=== PATIENT | female | born 2000 | race Caucasian/White ===

== ENCOUNTER → 2020-04-05 08:08 | Outpatient (CLI) | payer OTHER, SELFPAY ==
[2020-04-05 09:21] LABS: Alanine Aminotransferase 13 IU/L (<35); Albumin 4.9 g/dL (3.5-5.0); Alkaline Phosphatase 48 U/L (38-126); Aspartate Aminotransferase 28 IU/L (14-36); BUN Creatinine Ratio 22.2 (6-22); Bilirubin Total 0.8 mg/dL (0.2-1.3); Blood Urea Nitrogen 14 mg/dL (7-17); Calcium 10.2 mg/dL (8.4-10.2); Carbon Dioxide 27 mmol/L (22-32); Chloride 104 mmol/L (98-107); Cholesterol 160 mg/dL (140-199); Estimated Glomerular Filt Rate > 60.0 mL/min (>60); Globulin 2.5 g/dL (1.7-4.1); Glucose 86 mg/dL (70-100); HDL Cholesterol 70 mg/dL (40-60); HEMOLYSIS < 15 (0-50); LDL Cholesterol Calculated 82 mg/dL (<100); Potassium 4.1 mmol/L (3.4-5.1); Sodium 138 mmol/L (137-145); Total Protein 7.4 g/dL (6.3-8.2); Triglycerides 41 mg/dL (35-150)
[2020-04-05 09:24] LABS: Hematocrit 38.3 % (36-46); Hemoglobin 13.4 g/dL (12.0-16.0); Mean Corpuscular HGB Conc 35.1 % (30-36); Mean Corpuscular Hemoglobin 30.7 PG (26-34); Mean Corpuscular Volume 87.5 fL (80-100); Platelet Count 228 X10^3/uL (150-400); Red Blood Cell Count 4.37 X10^6/uL (4.0-5.2); Red Cell Distribution Width 12.2 % (11.6-14.8); White Blood Cell Count 7.5 X10^3/uL (4.5-11.0)
== END ==
PROVIDERS: PCP Nurse Practitioner Family; Referring Provider Nurse Practitioner Family; Visit Provider Nurse Practitioner Family
DX: Z00.00 Encounter for general adult medical examination without abnormal findings (principal); Z01.83 Encounter for blood typing; Z13.6 Encounter for screening for cardiovascular disorders
CPT/HCPCS: 36415; 80053; 80061; 85027; 86900; 86901

== ENCOUNTER → 2020-04-21 14:24 | Outpatient (CLI) | payer OTHER, SELFPAY ==
--- NOTE | 2020-04-21 14:26 | DI.RAD.S_ITS ---
PROCEDURE: XR TIBIA FIBULA RT 2V INDICATIONS: left alvares pain TECHNIQUE: 2 views of the tibia and fibula were acquired. COMPARISON: None. FINDINGS: Bones: No fractures or dislocations. No suspicious bony lesions. Soft tissues: No suspicious soft tissue calcifications or masses. IMPRESSION: No evidence acute bony abnormality of the left tibia and fibula. Dictated by: Luan Abraham M.D. on 04/21/2020 at 18:40 Approved by: Luan Abraham M.D. on 04/21/2020 at 18:41
== END ==
PROVIDERS: PCP Nurse Practitioner Family; Referring Provider Nurse Practitioner Family; Visit Provider Nurse Practitioner Family
DX: M79.605 Pain in left leg (principal)
CPT/HCPCS: 73590

== ENCOUNTER → 2021-07-19 08:08 | Outpatient (CLI) | payer OTHER, SELFPAY ==
[2021-07-19 09:10] LABS: Hematocrit 38.5 % (36-46); Mean Corpuscular HGB Conc 33.9 % (30-36); Mean Corpuscular Hemoglobin 29.5 PG (26-34); Mean Corpuscular Volume 87.1 fL (80-100); Platelet Count 228 X10^3/uL (150-400); Red Blood Cell Count 4.42 X10^6/uL (4.0-5.2); Red Cell Distribution Width 12.3 % (11.6-14.8); White Blood Cell Count 5.5 X10^3/uL (4.5-11.0)
[2021-07-19 10:18] LABS: Erythrocyte Sedimentation Rate 1 MM/HR (0-20)
[2021-07-19 10:22] LABS: Alanine Aminotransferase 12 IU/L (<35); Albumin 4.8 g/dL (3.5-5.0); Albumin Globulin Ratio 1.9 (1.0-2.8); Alkaline Phosphatase 42 U/L (38-126); Aspartate Aminotransferase 23 IU/L (14-36); BUN Creatinine Ratio 18.8 (6-22); Bilirubin Total 0.8 mg/dL (0.2-1.3); Blood Urea Nitrogen 12 mg/dL (7-17); C-Reactive Protein Quant < 0.5 mg/dL (<1.0); Calcium 9.7 mg/dL (8.4-10.2); Carbon Dioxide 24 mmol/L (22-32); Chloride 105 mmol/L (98-107); Estimated Glomerular Filt Rate > 60.0 mL/min (>60); Globulin 2.5 g/dL (1.7-4.1); Glucose 86 mg/dL (70-100); HEMOLYSIS < 15 (0-50); Sodium 140 mmol/L (137-145); Total Protein 7.3 g/dL (6.3-8.2)
== END ==
PROVIDERS: PCP Nurse Practitioner Family; Referring Provider Nurse Practitioner Family; Visit Provider Nurse Practitioner Family
DX: Z00.00 Encounter for general adult medical examination without abnormal findings (principal); F41.9 Anxiety disorder, unspecified; K58.2 Mixed irritable bowel syndrome
CPT/HCPCS: 36415; 80053; 84443; 85027; 85651; 86140

== ENCOUNTER 2024-07-06 05:00 | Emergency (ER) | payer OTHER, MEDICAID, SELFPAY ==
[2024-07-06] VITALS (14 sets, daily range): BP systolic 107–149; BP diastolic 55–89; PULSE 103–144; RESP 12–35; TEMP 36.8; O2SAT 96–100; BMI 21.9
--- NOTE | 2024-07-06 05:08 | EKG_ITS ---
[address] [address] Test Date: 2024-07-06 Pat Name: Tracy Marino Department: Room: Gender: Female Audio/Video Engineer: : 2000 Requested By: Order Number: [id number] Reading MD: Tom Penaloza MD Measurements Intervals [place] Rate: 128 P: 78 ME: 150 QRS: 77 QRSD: 78 T: 64 QT: 298 QTc: 435 Interpretive Statements Sinus tachycardia Electronically Signed On 07-06-2024 7:58:31 PDT by Tom Penaloza MD
--- NOTE | 2024-07-06 05:11 | DI.US.S_ITS ---
PROCEDURE: US PELVIC COMPLETE INDICATIONS: SEVERE L PELVIC PAIN TECHNIQUE: Real-time scanning was performed of the pelvic organs, with image documentation. Additional endovaginal scanning was necessary due to incomplete visualization of the adnexal and endometrial structures by transabdominal scanning. COMPARISON: None. FINDINGS: Uterus: Uterus is anteverted and normal in size at 5.7 x 4.7 x 3.0 cm. The myometrium is homogeneous. The endometrium measures 2 mm combined thickness. Trace fluid within the endometrium. Ovaries: The right ovary measures 3.2 x 2.6 x 2.4 cm, with a calculated ovarian volume of 10.4 cc. Simple cyst versus dominant follicle measuring 2.4 centimeters in the right ovary. The left ovary measures 2.7 x 2.3 x 1.2 cm, with a calculated ovarian volume of 3.9 cc. The ovaries have a normal sonographic appearance. Less than 12 follicles can be seen in each ovary. No adnexal masses are seen. Doppler flow is seen to the bilateral ovaries. Other: No pathologic free abdominal or pelvic fluid. IMPRESSION: Normal appearance of the uterus and ovaries. Normal flow is identified to the bilateral ovaries. Findings are concordant with preliminary interpretation provided by [facility]. We strive to produce accurate, complete, and clear reports of imaging services. To assist us in improving patient care, this report was composed using standard report templates and voice recognition software. Therefore, it may contain abnormal punctuation, insertions and/or omissions. Occasional wrong-word or sound-alike substitutions may occur. Though we review the report and make efforts to correct it, we do recommend that the report be read carefully in proper context to recognize any text inaccuracies. Dictated by: Daquan Deal M.D. on 07/06/2024 at 8:41 Approved by: Daquan Deal M.D. on 07/06/2024 at 8:43
--- NOTE | 2024-07-06 05:12 | ED_ITS ---
HPI - Abdominal Pain <Susanne Mcfarlane MD - Last Filed: 07/06/24 21:16> General Chief Complaint: Abdominal Pain Stated Complaint: passed out Time Seen by Provider: 07/06/24 05:02 History of Present Illness HPI narrative: 24-year-old female with history of ovarian cysts presents by private vehicle from home for lower pelvic pain and near syncopal episode. History obtained from sister and has been at bedside. Patient had IUD removal 1 week ago. Sister stated that she had IUD placed for help with ovarian cysts, but it was removed because the hormones ?did not agree with her system?. Patient was had some pelvic cramping and pain since IUD removal, but last night at a [employer] her pain worsened. This morning the patient had a near syncopal episode due to her pain and she was brought in by private vehicle for assessment. Shortly after walking into the emergency department front doors the patient was assisted down to the ground by her spouse and laid on the floor. Patient endorsed to nursing staff that she did drink wine and have some cocaine this evening at the [employer] [facility]. Related Data Previous Rx's Medication Instructions Recorded sertraline 50 mg tablet 50 mg PO DAILY #90 tabs 03/05/22 Allergies Allergy/AdvReac Type Severity Reaction Status Date / Time house dust Allergy Mild rash, Verified 07/31/21 13:33 sinus congestion. Patient History <Susanne Mcfarlane MD - Last Filed: 07/06/24 21:16> Medical History IUD surveillance Anxiety (03/2021) Irritable bowel syndrome with constipation and diarrhea Constipation Lower extremity pain, left Bruise Warts (~2009) Plantar warts (~2009) Asthma (~2010) Allergies (~2008) Painful menstrual periods (~2011) Ovarian cyst (~2013) Heavy menstrual period (~2011) Preventative health care Acne (~2011) Exercise-induced asthma (2011) Encounter for counseling regarding contraception Surgical History Anesthesia History of appendectomy (~2014) Family History Grandfather Alzheimer's disease Grandmother Hypertension Hyperlipidemia Osteoporosis Arthritis Grandmother Osteoporosis Scoliosis Social History Smoking Status: Never smoker second hand exposure: No alcohol intake: never substance use type: does not use Smoking Status: Never smoker Exam <Susanne Mcafrlane MD - Last Filed: 07/06/24 21:16> Initial Vital Signs Initial Vital Signs: Vital Signs Pulse Rate 130 H 07/06/24 05:05 Respiratory Rate 20 07/06/24 05:05 Pulse Oximetry 100 07/06/24 05:05 Const: Awake, alert, uncomfortable, in pain, eyes closed Cardiac: Tachycardia, regular rhythm RESP: unlabored, clear bilaterally, no wheezing GI: Soft, left lower quadrant tenderness to palpation, no guarding Skin: Warm, Dry, intact, no rashes Neuro: AO x3, CN II-XII grossly intact, moves all extremities <Girish Coleman DO - Last Filed: 07/06/24 09:01> Initial Vital Signs Initial Vital Signs: Vital Signs Pulse Rate 130 H 07/06/24 05:05 Respiratory Rate 20 07/06/24 05:05 Pulse Oximetry 100 07/06/24 05:05 Course <Susanne Mcfarlane MD - Last Filed: 07/06/24 21:16> Orders Ordered: Discontinued Medications Sodium Chloride (Normal Saline 0.9%) 1,000 mls @ 1,000 mls/hr IV BOLUS ONE Stop: 07/06/24 06:06 Last Infusion: 07/06/24 06:52 Dose: Infused Documented By: Admin: 07/06/24 05:26 Dose: 1,000 mls/hr Documented By: Sodium Chloride (Normal Saline 0.9%) 1,000 mls @ 1,000 mls/hr IV BOLUS ONE Stop: 07/06/24 08:35 Last Infusion: 07/06/24 08:50 Dose: Infused Documented By: Admin: 07/06/24 07:49 Dose: 1,000 mls/hr Documented By: ROX(2) Ketorolac Tromethamine (Ketorolac 30 Mg/Ml Vial) 15 mg IV NOW ONE Stop: 07/06/24 05:34 Last Admin: 07/06/24 05:38 Dose: 15 mg Documented By: Lorazepam (Lorazepam 2 Mg/Ml Inj) 2 mg IV NOW ONE Stop: 07/06/24 06:34 Last Admin: 07/06/24 06:49 Dose: 2 mg Documented By: Lorazepam (Lorazepam 2 Mg/Ml Inj) 1 mg IV NOW ONE Stop: 07/06/24 08:31 Last Admin: 07/06/24 08:47 Dose: 1 mg Documented By: ROX Morphine Sulfate (Morphine 4 Mg/Ml Inj) 4 mg IV NOW ONE Stop: 07/06/24 05:13 Last Admin: 07/06/24 05:25 Dose: 4 mg Documented By: Vital Signs Vital signs: Vital Signs - 8 hr 07/06/24 05:05 07/06/24 05:06 07/06/24 05:30 Temperature 98.2 F Pulse Rate 130 H 140 H 144 H Respiratory Rate 20 18 35 H Blood Pressure 149/87 H Pulse Oximetry 100 100 100 Oxygen Delivery Method Room Air 07/06/24 05:30 07/06/24 05:49 07/06/24 05:49 Temperature Pulse Rate 139 H Respiratory Rate 21 Blood Pressure 120/64 149/89 H Pulse Oximetry 100 Oxygen Delivery Method 07/06/24 06:00 07/06/24 06:00 07/06/24 06:30 Temperature Pulse Rate 141 H 127 H Respiratory Rate 23 18 Blood Pressure 133/76 Pulse Oximetry 100 97 Oxygen Delivery Method 07/06/24 06:30 07/06/24 07:30 07/06/24 07:30 Temperature Pulse Rate 114 H Respiratory Rate 16 Blood Pressure 122/60 115/55 L Pulse Oximetry 96 Oxygen Delivery Method 07/06/24 07:42 07/06/24 07:42 07/06/24 07:45 Temperature Pulse Rate 136 H 125 H Respiratory Rate 17 18 Blood Pressure 107/59 L Pulse Oximetry 97 97 Oxygen Delivery Method 07/06/24 07:45 07/06/24 08:00 07/06/24 08:00 Temperature Pulse Rate 123 H Respiratory Rate 17 Blood Pressure 108/57 L 115/60 Pulse Oximetry 97 Oxygen Delivery Method 07/06/24 08:15 07/06/24 08:15 07/06/24 08:30 Temperature Pulse Rate 110 H 128 H Respiratory Rate 15 17 Blood Pressure 119/66 Pulse Oximetry 97 98 Oxygen Delivery Method 07/06/24 08:30 07/06/24 08:45 07/06/24 08:45 Temperature Pulse Rate 117 H Respiratory Rate 14 Blood Pressure 122/68 122/66 Pulse Oximetry 97 Oxygen Delivery Method <Girish Coleman DO - Last Filed: 07/06/24 09:01> Orders Ordered: Discontinued Medications Sodium Chloride (Normal Saline 0.9%) 1,000 mls @ 1,000 mls/hr IV BOLUS ONE Stop: 07/06/24 06:06 Last Infusion: 07/06/24 06:52 Dose: Infused Documented By: Admin: 07/06/24 05:26 Dose: 1,000 mls/hr Documented By: Sodium Chloride (Normal Saline 0.9%) 1,000 mls @ 1,000 mls/hr IV BOLUS ONE Stop: 07/06/24 08:35 Last Infusion: 07/06/24 08:50 Dose: Infused Documented By: Admin: 07/06/24 07:49 Dose: 1,000 mls/hr Documented By: ROX(2) Ketorolac Tromethamine (Ketorolac 30 Mg/Ml Vial) 15 mg IV NOW ONE Stop: 07/06/24 05:34 Last Admin: 07/06/24 05:38 Dose: 15 mg Documented By: Lorazepam (Lorazepam 2 Mg/Ml Inj) 2 mg IV NOW ONE Stop: 07/06/24 06:34 Last Admin: 07/06/24 06:49 Dose: 2 mg Documented By: Lorazepam (Lorazepam 2 Mg/Ml Inj) 1 mg IV NOW ONE Stop: 07/06/24 08:31 Last Admin: 07/06/24 08:47 Dose: 1 mg Documented By: ROX Morphine Sulfate (Morphine 4 Mg/Ml Inj) 4 mg IV NOW ONE Stop: 07/06/24 05:13 Last Admin: 07/06/24 05:25 Dose: 4 mg Documented By: Vital Signs Vital signs: Vital Signs - 8 hr 07/06/24 05:05 07/06/24 05:06 07/06/24 05:30 Temperature 98.2 F Pulse Rate 130 H 140 H 144 H Respiratory Rate 20 18 35 H Blood Pressure 149/87 H Pulse Oximetry 100 100 100 Oxygen Delivery Method Room Air 07/06/24 05:30 07/06/24 05:49 07/06/24 05:49 Temperature Pulse Rate 139 H Respiratory Rate 21 Blood Pressure 120/64 149/89 H Pulse Oximetry 100 Oxygen Delivery Method 07/06/24 06:00 07/06/24 06:00 07/06/24 06:30 Temperature Pulse Rate 141 H 127 H Respiratory Rate 23 18 Blood Pressure 133/76 Pulse Oximetry 100 97 Oxygen Delivery Method 07/06/24 06:30 07/06/24 07:30 07/06/24 07:30 Temperature Pulse Rate 114 H Respiratory Rate 16 Blood Pressure 122/60 115/55 L Pulse Oximetry 96 Oxygen Delivery Method 07/06/24 07:42 07/06/24 07:42 07/06/24 07:45 Temperature Pulse Rate 136 H 125 H Respiratory Rate 17 18 Blood Pressure 107/59 L Pulse Oximetry 97 97 Oxygen Delivery Method 07/06/24 07:45 07/06/24 08:00 07/06/24 08:00 Temperature Pulse Rate 123 H Respiratory Rate 17 Blood Pressure 108/57 L 115/60 Pulse Oximetry 97 Oxygen Delivery Method 07/06/24 08:15 07/06/24 08:15 07/06/24 08:30 Temperature Pulse Rate 110 H 128 H Respiratory Rate 15 17 Blood Pressure 119/66 Pulse Oximetry 97 98 Oxygen Delivery Method 07/06/24 08:30 07/06/24 08:45 07/06/24 08:45 Temperature Pulse Rate 117 H Respiratory Rate 14 Blood Pressure 122/68 122/66 Pulse Oximetry 97 Oxygen Delivery Method MDM - Abdominal Pain <Susanne Mcfarlane MD - Last Filed: 07/06/24 21:16> Lab Data 07/06/24 05:07 07/06/24 05:07 Labs: Lab Results 07/06/24 07/06/24 Range/Units 05:07 05:50 WBC 12.2 H (4.5-11.0) X10^3/uL RBC 4.58 (4.0-5.2) X10^6/uL Hgb 13.5 (12.0-16.0) g/dL Hct 38.7 (36-46) % MCV 84.5 (80-100) fL MCH 29.4 (26-34) PG MCHC 34.8 (30-36) % RDW 12.7 (11.6-14.8) % Plt Count 301 (150-400) X10^3/uL Neut % (Auto) 82.1 H (50-75) % Lymph % (Auto) 12.8 L (25-40) % Todd % (Auto) 4.4 (3-14) % Eos % (Auto) 0.2 L (2-4) % Baso % (Auto) 0.5 (0-2) % Neut # (Auto) 76219 H (4244-5115) /uL Lymph # (Auto) 1600 (1946-6279) /uL Todd # (Auto) 500 (0-900) /uL Eos # (Auto) 0 (0-450) /uL Baso # (Auto) 100 (0-100) /uL Sodium 138 (137-145) mmol/L Potassium 3.6 (3.4-5.1) mmol/L Chloride 103 (98-107) mmol/L Carbon Dioxide 22 (22-32) mmol/L BUN 8 (7-17) mg/dL Creatinine 0.71 (0.52-1.04) mg/dL Estimated GFR > 60 (>60) mL/min BUN/Creatinine Ratio 11.3 (6-22) Glucose 130 H (70-100) mg/dL Calcium 9.8 (8.4-10.2) mg/dL Magnesium 1.8 (1.6-2.3) mg/dL Total Bilirubin 0.9 (0.2-1.3) mg/dL AST 27 (14-36) IU/L ALT 16 (<35) IU/L Alkaline Phosphatase 52 (38-126) U/L Total Protein 8.4 H (6.3-8.2) g/dL Albumin 5.3 H (3.5-5.0) g/dL Globulin 3.1 (1.7-4.1) g/dL Albumin/Globulin Ratio 1.7 (1.0-2.8) U Opiates 300ng/mL cut Positive H (Negative) Ur Oxycodone Screen Negative (Negative) Urine Methadone Screen Negative (Negative) Ur Barbiturates Screen Negative (Negative) U Tricyclic Antidepress Negative (Negative) Ur Phencyclidine Scrn Negative (Negative) Ur Amphetamines Screen Negative (Negative) U Methamphetamines Scrn Negative (Negative) Ur MDMA Scrn (Ecstasy) Negative (Negative) U Benzodiazepines Scrn Negative (Negative) Urine Cocaine Screen Positive H (Negative) U Marijuana (THC) Screen Positive H (Negative) Urine pH Normal (Normal) Urine Specific [place] Normal (Normal) Ethyl Alcohol < 10 ( - 10) mg/dL Ur Creatinine Normal (Normal) Point of care testing: Point of Care Testing Test Results Negative Glucose POC 116 Urine Dip Bedside Urine Glucose Negative Bedside Urine Bilirubin - Negative Bedside Urine Ketone - Negative Urine Specific [place] 1.015 Bedside Urine Occult Blood - Negative Bedside Urine pH 6 Bedside Urine Protein - Negative Bedside Urine Urobilinogen - Negative Bedside Urine Nitrite - Negative Bedside Urine Leukocytes - Negative Esterase ECG Data Interpretation: Sinus tachycardia at 128 beats per minute. Normal NH, no ST T wave changes, no STEMI MDM Narrative Medical decision making narrative: 1 week pelvic pain, rapidly worsening overnight. Patient was tachycardic and tremulous on exam. She did admit to nursing staff that she took cocaine this evening, but in setting of history of cysts and patient's abnormal vitals can not rule out underlying pathology. Laboratory work, narcotic pain medication, ultrasound ordered. 0520 -informed by ultrasound that there would be 45 minute weight for aerospace physiological technician could arrived to do scans. Labs reviewed - no significant abnormality. US shows no explanation for patient's pain. Patient's heart rate still elevated in the 130s. Patient initially reported pain improved, but worsened again after pelvic ultrasound. UDS positive for cocaine, THC, opiates, however patient did get morphine prior to providing urine sample. Will order CT AP for assessment - patient stating she feels she can't pass gas. Care of patient is signed out to daytime physician at 7:00 a.m. 0700: Received sign-out by incoming doctor, patient now with improved symptoms, patient is still slightly tachycardic, most likely secondary to pain versus cocaine use will require continued IV hydration as well as re-evaluation, most likely discharge once vital signs improved. 0830: Patient re-evaluated, still remaining slightly tachycardic, however improved since initial presentation here, initially was in the 130s, will order additional 1 mg of Ativan for heart rate control given patient with positive cocaine use. 0900: Patient re-evaluated no new complaints at this time, tachycardia has now resolved, patient was given strict return precautions safe for discharge home with outpatient follow up <Girish Coleman DO - Last Filed: 07/06/24 09:01> Lab Data Labs: Lab Results 07/06/24 07/06/24 Range/Units 05:07 05:50 WBC 12.2 H (4.5-11.0) X10^3/uL RBC 4.58 (4.0-5.2) X10^6/uL Hgb 13.5 (12.0-16.0) g/dL Hct 38.7 (36-46) % MCV 84.5 (80-100) fL MCH 29.4 (26-34) PG MCHC 34.8 (30-36) % RDW 12.7 (11.6-14.8) % Plt Count 301 (150-400) X10^3/uL Neut % (Auto) 82.1 H (50-75) % Lymph % (Auto) 12.8 L (25-40) % Todd % (Auto) 4.4 (3-14) % Eos % (Auto) 0.2 L (2-4) % Baso % (Auto) 0.5 (0-2) % Neut # (Auto) 55183 H (0691-3150) /uL Lymph # (Auto) 1600 (8191-2807) /uL Todd # (Auto) 500 (0-900) /uL Eos # (Auto) 0 (0-450) /uL Baso # (Auto) 100 (0-100) /uL Sodium 138 (137-145) mmol/L Potassium 3.6 (3.4-5.1) mmol/L Chloride 103 (98-107) mmol/L Carbon Dioxide 22 (22-32) mmol/L BUN 8 (7-17) mg/dL Creatinine 0.71 (0.52-1.04) mg/dL Estimated GFR > 60 (>60) mL/min BUN/Creatinine Ratio 11.3 (6-22) Glucose 130 H (70-100) mg/dL Calcium 9.8 (8.4-10.2) mg/dL Magnesium 1.8 (1.6-2.3) mg/dL Total Bilirubin 0.9 (0.2-1.3) mg/dL AST 27 (14-36) IU/L ALT 16 (<35) IU/L Alkaline Phosphatase 52 (38-126) U/L Total Protein 8.4 H (6.3-8.2) g/dL Albumin 5.3 H (3.5-5.0) g/dL Globulin 3.1 (1.7-4.1) g/dL Albumin/Globulin Ratio 1.7 (1.0-2.8) U Opiates 300ng/mL cut Positive H (Negative) Ur Oxycodone Screen Negative (Negative) Urine Methadone Screen Negative (Negative) Ur Barbiturates Screen Negative (Negative) U Tricyclic Antidepress Negative (Negative) Ur Phencyclidine Scrn Negative (Negative) Ur Amphetamines Screen Negative (Negative) U Methamphetamines Scrn Negative (Negative) Ur MDMA Scrn (Ecstasy) Negative (Negative) U Benzodiazepines Scrn Negative (Negative) Urine Cocaine Screen Positive H (Negative) U Marijuana (THC) Screen Positive H (Negative) Urine pH Normal (Normal) Urine Specific [place] Normal (Normal) Ethyl Alcohol < 10 ( - 10) mg/dL Ur Creatinine Normal (Normal) Point of care testing: Point of Care Testing Test Results Negative Glucose POC 116 Urine Dip Bedside Urine Glucose Negative Bedside Urine Bilirubin - Negative Bedside Urine Ketone - Negative Urine Specific [place] 1.015 Bedside Urine Occult Blood - Negative Bedside Urine pH 6 Bedside Urine Protein - Negative Bedside Urine Urobilinogen - Negative Bedside Urine Nitrite - Negative Bedside Urine Leukocytes - Negative Esterase MDM Narrative Medical decision making narrative: 1 week pelvic pain, rapidly worsening overnight. Patient was tachycardic and tremulous on exam. She did admit to nursing staff that she took cocaine this evening, but in setting of history of cysts and patient's abnormal vitals can not rule out underlying pathology. Laboratory work, narcotic pain medication, ultrasound ordered. 0520 -informed by ultrasound that there would be 45 minute weight for aerospace physiological technician could arrived to do scans. Labs reviewed - no significant abnormality. US shows no explanation for patient's pain. Patient's heart rate still elevated in the 130s. Patient initially reported pain improved, but worsened again after pelvic ultrasound. UDS positive for cocaine, THC, opiates, however patient did get morphine prior to providing urine sample. Will order CT AP for assessment - patient stating she feels she can't pass gas. 0700: Received sign-out by incoming doctor, patient now with improved symptoms, patient is still slightly tachycardic, most likely secondary to pain versus cocaine use will require continued IV hydration as well as re-evaluation, most likely discharge once vital signs improved. 0830: Patient re-evaluated, still remaining slightly tachycardic, however improved since initial presentation here, initially was in the 130s, will order additional 1 mg of Ativan for heart rate control given patient with positive cocaine use. 0900: Patient re-evaluated no new complaints at this time, tachycardia has now resolved, patient was given strict return precautions safe for discharge home with outpatient follow up Discharge Plan Departure Patient Disposition: Home Clinical Impression: Drug abuse, Abdominal pain Activity Restrictions/Additional Instructions: Please read the discharge instructions sheet carefully and bring all papers to all doctor follow-up visits, as it may contain information that your doctor may want to see. Disease processes change and evolve, if your symptoms worsen or if you develop any new symptoms that are concerning to you please return for evaluation. Your evaluation today does not show any evidence of any life- threatening/serious illnesses requiring admission to the hospital or surgery. Please follow-up with your doctor for re-evaluation in approximately 1 day. Seek immediate medical attention for any worrisome symptoms. Prescriptions: No Action sertraline 50 mg tablet 50 mg PO DAILY Qty: 90 2RF Referrals: Pat Aguirre PA-C [Primary Care Provider] - Stand Alone Forms: Patient Portal/API
[2024-07-06 05:19] LABS: Add Manual Diff / Slide Review NO; Basophils Absolute Auto 100 /uL (0-100); Basophils Percent Auto 0.5 % (0-2); Eosinophils Absolute Auto 0 /uL (0-450); Eosinophils Percent Auto 0.2 % (2-4); Hematocrit 38.7 % (36-46); Hemoglobin 13.5 g/dL (12.0-16.0); Lymphocytes Absolute Auto 1600 /uL (1100-4500); Lymphocytes Percent Auto 12.8 % (25-40); Mean Corpuscular HGB Conc 34.8 % (30-36); Mean Corpuscular Hemoglobin 29.4 PG (26-34); Mean Corpuscular Volume 84.5 fL (80-100); Monocytes Absolute Auto 500 /uL (0-900); Monocytes Percent Auto 4.4 % (3-14); Neutrophils Absolute Auto 10000 /uL (1500-7000); Neutrophils Percent Auto 82.1 % (50-75); Platelet Count 301 X10^3/uL (150-400); Red Blood Cell Count 4.58 X10^6/uL (4.0-5.2); Red Cell Distribution Width 12.7 % (11.6-14.8); White Blood Cell Count 12.2 X10^3/uL (4.5-11.0)
--- NOTE | 2024-07-06 05:23 | PC.NURSE ---
Called in senior technical support analyst on-call. called back saying someone else would be here in about 45 min, even with provider insisting tech come in.
[2024-07-06] MEDS: MORPHINE 4 MG/ML INJ IV (05:25)
[2024-07-06] MEDS: SODIUM CHLORIDE 0.9% 1,000 ML 1000 ML IV ×2 (05:26→07:49)
[2024-07-06 05:28] LABS: Alanine Aminotransferase 16 IU/L (<35); Albumin 5.3 g/dL (3.5-5.0); Albumin Globulin Ratio 1.7 (1.0-2.8); Alkaline Phosphatase 52 U/L (38-126); Aspartate Aminotransferase 27 IU/L (14-36); BUN Creatinine Ratio 11.3 (6-22); Bilirubin Total 0.9 mg/dL (0.2-1.3); Blood Urea Nitrogen 8 mg/dL (7-17); Calcium 9.8 mg/dL (8.4-10.2); Carbon Dioxide 22 mmol/L (22-32); Chloride 103 mmol/L (98-107); Estimated Glomerular Filt Rate > 60 mL/min (>60); Ethanol (ETOH) < 10 mg/dL; Globulin 3.1 g/dL (1.7-4.1); Glucose 130 mg/dL (70-100); HEMOLYSIS < 15 (0-50); Magnesium 1.8 mg/dL (1.6-2.3); Potassium 3.6 mmol/L (3.4-5.1); Sodium 138 mmol/L (137-145); Total Protein 8.4 g/dL (6.3-8.2)
[2024-07-06] MEDS: KETOROLAC 30 MG/ML VIAL 15 MG IV (05:38)
[2024-07-06 06:05] LABS: UR Morphine/Opiate cutoff 300 Positive (Negative); Ur Creatinine Normal (Normal); Ur Specific Gravity Normal (Normal); Urine Amphetamines Negative (Negative); Urine Barbiturates Negative (Negative); Urine Benzodiazepines Negative (Negative); Urine Cocaine Positive (Negative); Urine MDMA Negative (Negative); Urine Methadone Negative (Negative); Urine Methamphetamines Negative (Negative); Urine Oxycodone Negative (Negative); Urine Phencyclidine Negative (Negative); Urine Tetrahydrocannabinol Positive (Negative); Urine Tricyclic Antidepressant Negative (Negative); Urine pH Normal (Normal)
--- NOTE | 2024-07-06 06:24 | DI.CT.S_ITS ---
PROCEDURE: CT ABDOMEN PELVIS W CON INDICATIONS: LLQ pain TECHNIQUE: After the administration of intravenous contrast, axial sections acquired from the lung bases to the pubic symphysis. Coronal and sagittal reformats were performed. For radiation dose reduction, the following was used: automated exposure control, adjustment of mA and/or kV according to patient size. COMPARISON: None. FINDINGS: Image quality: Diagnostic. Lower Chest: No significant findings. ABDOMEN: Liver: No solid mass. Gallbladder: No radiopaque gallstones or wall thickening. Biliary ducts: No biliary dilation. Pancreas: No ductal dilation. Spleen: Size is within normal limits. Adrenal Glands: No adrenal nodules. Kidneys and Ureters: No hydronephrosis. No solid mass. No complex renal cystic lesion which requires follow up. Stomach and Bowel: Normal colonic caliber, without significant wall thickening. Appendix is not definitively seen. No inflammatory changes are seen in the right lower quadrant. Peritoneum: No abnormal intraperitoneal fluid. No free air. Ventral Wall: No significant ventral hernia. Abdominal Nodes: No retroperitoneal or mesenteric adenopathy by size criteria. Vessels: Aorta and inferior vena cava are normal in size. PELVIS: Pelvic Organs: Unremarkable. Bladder: No bladder wall thickening, accounting for underdistention. Pelvic Nodes: No enlarged lymph nodes. Miscellaneous: No inguinal hernias are seen. Bones: No aggressive osseous abnormality. IMPRESSION: No acute findings within the abdomen or pelvis to explain patient's symptoms. Findings are concordant with preliminary interpretation provided by [facility]. Dictated by: Daquan Deal M.D. on 07/06/2024 at 8:43 Approved by: Daquan Deal M.D. on 07/06/2024 at 8:47
[2024-07-06] MEDS: LORazepam 2 MG/ML INJ IV (06:49)
[2024-07-06] MEDS: LORazepam 2 MG/ML INJ 1 MG IV (08:47)
== END 2024-07-06 09:12 | disposition home or self-care (01) ==
PROVIDERS: Emergency Medicine; Emergency Provider Student in an Organized Health Care Education/Training Program; PCP Physician Assistant Medical
DX: R10.2 Pelvic and perineal pain (principal); F19.10 Other psychoactive substance abuse, uncomplicated; R55 Syncope and collapse; R00.0 Tachycardia, unspecified
CPT/HCPCS: 36415; 74177; 76830; 76856; 80053; 80305; 80320; 81003; 81025; 82962; 83735; 85025; 93005; 93975; 96361; 96374; 96375; 96376; 99284; J1885; J2060; J2270; Q9967